=== PATIENT | male | born 1975 | race African-American/Black ===

== ENCOUNTER 2018-09-02 17:01 | Emergency (ER) | payer OTHER ==
[~2018-09-02] VITALS: Ht 180.3 cm; Wt 72.6 kg
[2018-09-02 20:07] VITALS: BP 137/74; TEMP 98.1
== END 2018-09-02 20:20 | disposition home or self-care (01) ==
LOC: ED 17:01
PROC: 0HQ0XZZ Repair Scalp Skin, External Approach (ICD-10-PCS; principal; 2018-09-02)
PROC: 0HQGXZZ Repair Left Hand Skin, External Approach (ICD-10-PCS; 2018-09-02)
DX: S01.91XA Laceration without foreign body of unspecified part of head, initial encounter (principal); S61.412A Laceration without foreign body of left hand, initial encounter; S09.90XA Unspecified injury of head, initial encounter; Y00.XXXA Assault by blunt object, initial encounter
CPT/HCPCS: 90471; 90715; 99283; J7040